=== PATIENT | male | born 1985 | race Caucasian/White ===

== ENCOUNTER 2021-07-23 08:25 | Emergency (ER) | payer BC, SELFPAY ==
[2021-07-23 08:46] VITALS: BP 159/90; PULSE 102; RESP 16; TEMP 36.6; O2SAT 98; BMI 37.5
--- NOTE | 2021-07-23 10:08 | ED_ITS ---
HPI - Ear Problem General Chief complaint: Ear Problems Stated complaint: right ear pain Time Seen by Provider: 07/23/21 10:08 Source: patient Mode of arrival: ambulatory Limitations: no limitations History of Present Illness HPI Narrative: 35-year-old male no known medical history presents to the emergency department with right ear pain has been progressively worsening over the past week. Patient tells me it feels as though he has water in his ear. He tells me he has been trying to clean his ears with Q-tips, he feels like he may have hurt himself with acute type. He tells me he feels pain inside his ear, and he feels like there is a ringing noise in his right ear. Patient has never had this before. He has not been swimming lately. He is not on any aminoglycosides or aspirin. He denies discharge from the right ear. MD Complaint: ear pain Location: right ear Duration: constant Severity: severe Relieving factors: nothing Exacerbating factors: nothing Discharge from ear: no Treatment prior to arrival: none Related Data Previous Rx's Medication Instructions Recorded amoxicillin 500 mg capsule 500 mg PO BID 7 Days #14 cap 07/23/21 ciprofloxacin 0.3 %-dexamethasone 4 drp OTIC (EAR) RIGHT Q12H 7 Days 07/23/21 0.1 % ear drops,suspension #7.5 ml (Ciprodex) prednisone 20 mg tablet 40 mg PO DAILY 5 Days #10 tab 07/23/21 Allergies Allergy/AdvReac Type Severity Reaction Status Date / Time No Known Allergies Allergy Mild NOT Unverified 04/06/20 17:35 APPLICABLE Review of Systems Review of Systems: Constitutional : No Weight loss, No Fever, No Chills, No Fatigue, No Malaise ENT/Mouth : No sore throat, No Rhinorrhea, + right ear pain Eyes: No Eye Pain, No Swelling, No Redness Cardiovascular : No Chest Pain, No SOB, No Dyspnea on Exertion, No Orthopnea, No Edema, No Palpitations Respiratory : No Cough, No Sputum, No Wheezing Gastrointestinal : No Nausea, No Vomiting, No Diarrhea, No Constipation, No abdominal Pain, No Hematochezia, No Melena Genitourinary : No Dysuria, No Urinary Frequency, No Hematuria, Musculoskeletal : No joint pain, No Myalgias, No Joint Swelling Skin : No Skin Lesions, No rash Neuro : No Weakness, No Numbness, No Dizziness, No Headache All other systems reviewed and are negative Yes all other systems are reviewed and are negative [facility]LY [facility] Past Medical History Attestation statement: The following information was validated with the patient. Source: old records reviewed and nursing notes reviewed Medical History No known health problems Surgical History Hx of appendectomy Social History Social History Advance Directives: No Advance Directives Information Provided: No Physical Exam Vital Signs: Vital Signs: Last Vital Signs Temp 97.9 F 07/23/21 08:46 Pulse 102 H 07/23/21 08:46 Resp 16 07/23/21 08:46 BP 159/90 H 07/23/21 08:46 Pulse Ox 98 07/23/21 08:46 BMI result Body Mass Index 37.5 Patient noted to be hypertensive, and tachycardic. Appearance: Alert.? Oriented X3.? No acute distress.? Head: Normocephalic, atraumatic, no step-offs or deformities Eyes: Pupils equal, round and reactive to light.? ENT: Pharynx normal.?No pain w/ manipulation of b/l ears. + yellow discharge in ear with erythematous right ear canal and TM on right. Left ear normal. No LAD. No pain with manipulation of external ear b/l. Neck: Normal inspection.? Neck supple.? CVS: Normal heart rate and rhythm.? Pulses normal.? Respiratory: No respiratory distress.? Breath sounds normal.? Abdomen: Soft and nontender.? Skin: Skin warm and dry.? Normal skin color.? Normal skin turgor.? Extremities: No lower extremity edema.? No calf ttp. 5/5 strength to bilateral upper and lower extremities Back: No midline tenderness, no C-spine tenderness, full range of motion, no CVA tenderness bilaterally Neuro: Oriented X 3.? No motor deficit.? No sensory deficit. Course Reevaluation(s) Reevaluation #1: Irrigated right ear large amount of yellow cerumen came out of ear canal, patient tolerated procedure well. At this time will discharge patient home on Cipro ear drops, as well as amoxicillin by mouth. Comfortable with discharge home. I have given him info for PCP follow up since he doesnt have a PCP. I have also given him strict return precautions an outline the mid his discharge. Time: 10:35 MDM - Ear MDM Narrative Medical decision making narrative: 1030 35 yo M no known medical hx presents w/ righ ear pain X1 weeks, tells me this may have started after trauma w/ Q-tip Upon physical examination there is yellow discharge in ear with erythematous right ear canal and TM on right. Left ear normal. No LAD. No pain with manipulation of external ear b/l. Vital signs stable. Lungs clear. Regular rate and rhythm. Abdomen soft nontender nondistended. Plan at this time is to discharge patient home on 2 antibiotic therapies. Medical Records Attestation: I reviewed the patient's medical records. Lab Data Attestation: I reviewed the patient's lab results. Critical Care Time Critical Care Time Critical Care Time: No Discharge Plan Discharge Clinical Impression: Otitis media Patient Disposition: Home, Self-Care Instructions: How to Use Ear Drops (ED), Ear Infection (ED) Additional Instructions: Take your medications as prescribed. If you were prescribed antibiotics today, it is important that you take your medication to their entirety, do not skip any doses, do not finish them early. Follow-up with your primary care provider this week. [facility] [phone] is taking new patients. Return to the emergency department with new or worsening symptoms. Such as fevers, chills, nausea, vomiting, chest pain, shortness of breath, worsening ear pain or discharge from the ear. In case of emergency call 911 Prescriptions: New ciprofloxacin-dexamethasone [Ciprodex] 0.3-0.1 % drops,suspension 4 drp otic (ear) right Q12H 7 Days Qty: 7.5 RF: 0 amoxicillin 500 mg capsule 500 mg PO BID 7 Days Qty: 14 RF: 0 prednisone 20 mg tablet 40 mg PO DAILY 5 Days Qty: 10 RF: 0 Referrals: Physician,None [Primary Care Provider] - 2 days Stand Alone Forms: Work/School Release
== END 2021-07-23 10:58 | disposition home or self-care (01) ==
PROVIDERS: Emergency Provider Emergency Medicine
DX: H66.91 Otitis media, unspecified, right ear (principal); H61.21 Impacted cerumen, right ear
CPT/HCPCS: 69209; 99283